=== PATIENT | male | born 1950 | race Caucasian/White ===

== ENCOUNTER → 2016-09-11 | Outpatient (CLI) | payer MEDICARE, OTHER ==
[~2016-09-11] MED LIST: MEVACOR20 MG PO; MONUROL3 GM PO; NORVASC5 MG PO; PRINCIPEN 250250 MG PO; UROXATRAL10 MG PO; VASOTEC20 MG PO
--- NOTE | ~2016-09-11 | HP ---
PATIENT'S NAME: KIRILL DUNCAN [facility] AGE: 66 Y [address] ROOM: [place] [id number] LOCATION: GRAD ADMIT DATE: 09/11/2016 History & Physical DISCHARGE DATE: FAMILY PHYSICIAN: Edwin Shelley MD ATTENDING PHYSICIAN: Jesus Whitman DATE OF SERVICE: HISTORY OF PRESENT ILLNESS: This is a 66-year-old male, who was well until about one month ago, when he began having voiding symptoms with suprapubic pain, pressure, constant feeling of the need to void, with nocturia times 6 to 7. He also has pain radiating down through the penis. He has had no CVA or flank pain. He has a past history of having prostatocystitis. At every time his cultures were done, it grows out an enterococcus. Unfortunately, he has significant side effects from ampicillin and therefore he has been treated with nitrofurantoin. With poor response. He also has a history of having bladder stones, which were removed in 2013 and then he had ESWL of a large stone in the right proximal ureter. Recent KUB x-ray shows stone in the right distal ureter, which was probably causing his voiding symptoms. He is seen now for stone removal. PAST MEDICAL HISTORY: Illnesses: None. Operations: 1. Repair of fractured leg. 2. Inguinal herniorrhaphy. 3. As above. ALLERGIES: SULFA AND AMPICILLIN. PHYSICAL EXAMINATION: GENERAL: Well-developed, well-nourished male. CHEST: Clear to auscultation. HEART: Normal sinus rhythm. ABDOMEN: Soft with no palpable masses. : Normal penis. Testicles are normal size and normal to palpation. Prostate is enlarged, smooth, and benign. RECTAL: Negative. IMPRESSION: PATIENT'S NAME: KIRILL DUNCAN [facility] AGE: 66 Y [address] ROOM: [place], [place] [id number] LOCATION: GRAD ADMIT DATE: 09/11/2016 History & Physical DISCHARGE DATE: FAMILY PHYSICIAN: Edwin Shelley MD ATTENDING PHYSICIAN: Jesus Whitman 1. Right distal ureteral stone. 2. Prostatocystitis - enterococcus. PLAN: As above. JESUS K MD PRABHA EKL/modl /[id number] CC: Edwin Shelley MD D: [id number] T: [id number] HISTORY & PHYSICAL
== END | disposition disaster alternative care site (69) ==
LOC: GRAD 10:43
DX: N21.0 Calculus in bladder (principal)

== ENCOUNTER → 2016-09-18 | Day surgery (SDC) | payer MEDICARE, OTHER ==
[~2016-09-18] VITALS: Ht 165.1 cm; Wt 75.5 kg
--- NOTE | ~2016-09-18 | OR ---
PATIENT'S NAME: KIRILL DUNCAN [facility] AGE: 66 Y [address] ROOM: [place] [address] LOCATION: [facility] ADMIT DATE: 09/18/2016 OR/Procedure Report DISCHARGE DATE: FAMILY PHYSICIAN: Edwin Shelley MD ATTENDING PHYSICIAN: Jesus Whitman SURGEON: Jesus Whitman MD CANDLE EXTRUSION MACHINE OPERATOR: DATE OF PROCEDURE: 09/18/2016 PREOPERATIVE DIAGNOSIS: Right distal ureteral stone. POSTOPERATIVE DIAGNOSIS: Right distal ureteral stone. PROCEDURE PERFORMED: 1. Cystoscopy, ureteroscopy with laser fragmentation of the stone. 2. Cystoscopy insertion of stent 4.8 multi-length. DESCRIPTION OF PROCEDURE: After adequate anesthesia, he was prepped and draped. A 21 ACMI scope was passed. The anterior urethra was normal. Prostate was normal with very minimal obstruction. Examination of bladder revealed diffuse trabeculation. No other abnormalities were noted. A guidewire was passed. There was some difficulty getting it passed to this large stone in the right distal ureter, but it finally slid by. Then a Microvasive balloon dilator was used to dilate the distal ureter. The cystoscope was inserted, passed to the stone and then with the laser, the large stone was fragmented. Multiple impulses were directed and it was increased to 800. After the stones were all fragmented, a Florez stone basket was used to remove all the fragments. The cystoscope was reinserted and over the guidewire, a ureteral stent was passed. It coiled nicely in the bladder gathering in the kidney. With the Ellik evacuator, all stone fragments were irrigated from the bladder. He was then accompanied to the recovery area. JESUS WHITMAN MD EKL/modl PATIENT'S NAME: KIRILL DUNCAN [facility] AGE: 66 Y [address] ROOM: [place] [address] LOCATION: [facility] ADMIT DATE: 09/18/2016 OR/Procedure Report DISCHARGE DATE: FAMILY PHYSICIAN: Edwin Shelley MD ATTENDING PHYSICIAN: Jesus Whitman /[id number] CC: Edwin Shelley MD d: 09/18/16 0845 t: 09/19/16 0453, OPERATIVE SUMMARY
== END | disposition disaster alternative care site (69) ==
LOC: GPOC 09-13 14:00 → GSDC 05:14
PROC: 0TF68ZZ Fragmentation in Right Ureter, Via Natural or Artificial Opening Endoscopic (ICD-10-PCS; principal; 2016-09-18)
PROC: 0T768DZ Dilation of Right Ureter with Intraluminal Device, Via Natural or Artificial Opening Endoscopic (ICD-10-PCS; 2016-09-18)
DX: N20.1 Calculus of ureter (principal); I12.9 Hypertensive chronic kidney disease with stage 1 through stage 4 chronic kidney disease, or unspecified chronic kidney disease; N18.9 Chronic kidney disease, unspecified; F17.210 Nicotine dependence, cigarettes, uncomplicated; Z88.2 Allergy status to sulfonamides; Z88.8 Allergy status to other drugs, medicaments and biological substances; Z98.890 Other specified postprocedural states
CPT/HCPCS: C1725; C1769; C2617; J2001; J2405; J2543; J2550; J7030